=== PATIENT | female | born 1955 | race Caucasian/White ===

== ENCOUNTER 2022-07-13 15:39 | Inpatient (IN) | payer BC, OTHER ==
[~2022-07-13] VITALS: Ht 165.1 cm; Wt 84.1 kg
[2022-07-13 16:06] LABS: BASOPHILS # (AUTO) 0.1 X10'3 (0-0.2); BASOPHILS % (AUTO) 1.3 % (0-1); EOSINOPHILS # (AUTO) 0.2 X10'3 (0-0.9); EOSINOPHILS % (AUTO) 3.5 % (0-6); HEMATOCRIT 43.7 % (35.0-45.0); HEMOGLOBIN 14.6 g/dl (12.0-16.0); LYMPHOCYTES # (AUTO) 1.7 X10'3 (1.1-4.8); LYMPHOCYTES % (AUTO) 30.5 % (21-51); MEAN CORPUSCULAR HEMOGLOBIN 32.8 PG (27.0-31.0); MEAN CORPUSCULAR HGB CONC 33.5 g/dL (33.0-36.5); MEAN CORPUSCULAR VOLUME 97.7 FL (78-98); MEAN PLATELET VOLUME 9.4 FL (7.4-10.4); MONOCYTES # (AUTO) 0.7 X10'3 (0-0.9); MONOCYTES % (AUTO) 12.8 % (2-12); NEUTROPHILS % (AUTO) 51.9 % (42-75); PLATELET COUNT 147 X10'3 (140-440); RED BLOOD COUNT 4.47 X10'6 (4.20-5.60); WHITE BLOOD COUNT 5.7 X10'3 (4.5-11.0)
[2022-07-13 16:13] LABS: ALANINE AMINOTRANSFERASE 25 U/L (12-78); ALBUMIN 4.2 G/DL (3.4-5.0); ALBUMIN/GLOBULIN RATIO 1.4 (1.1-1.5); ALKALINE PHOSPHATASE 74 IU/L (46-116); ANION GAP 3 (8-16); ASPARTATE AMINO TRANSFERASE 19 U/L (10-37); BILIRUBIN,TOTAL 0.4 MG/DL (0.1-1.0); CALCIUM 9.2 MG/DL (8.5-10.1); CHLORIDE 103 MMOL/L (99-107); CREATININE 0.74 MG/DL (0.40-0.90); GLUCOSE 103 MG/DL (70-104); POTASSIUM 3.8 MMOL/L (3.5-5.1); SODIUM 136 MMOL/L (135-145); TOTAL CARBON DIOXIDE 29.9 MMOL/L (24-32); TOTAL PROTEIN 7.3 G/DL (6.4-8.2); eGFR 78 ML/MIN
[2022-07-13 16:21] LABS: BLOOD UREA NITROGEN 22 MG/DL (7-18); BUN/CREATININE RATIO 29.7 (10.0-20.0); MAGNESIUM 2.2 MG/DL (1.5-2.4)
[2022-07-13] MEDS ORDERED: nitroGLYCERIN 1gm ointment UD TP ONE (21:05)
[2022-07-13] MEDS ORDERED: aspirin 325mg tablet PO ONE (21:05)
[2022-07-13 22:10] LABS: D-DIMER 0.21 MG/L FEU (0-0.50)
[2022-07-13] MEDS ORDERED: mag hydrox/Alum hydrox/simeth 30ml oral suspension PO PRN (22:35)
[2022-07-13] MEDS ORDERED: nitroGLYCERIN 0.4mg SUBLingual tab SL PRN (22:35)
[2022-07-13] MEDS ORDERED: magnesium 2GM in 50ml NS 50 ML IV PRN (22:35)
[2022-07-13] MEDS ORDERED: potassium Cl 40MEQ/1/2NS 520ml 520 ML IV PRN (22:35)
[2022-07-13] MEDS ORDERED: regadenoson 0.4mg/5ml syringe IV PRN (22:35)
[2022-07-13] MEDS ORDERED: acetaminophen 325mg tablet PO PRN (22:35)
[2022-07-13] MEDS ORDERED: metoprolol tartrate 1mg/ml inj IV PRN (22:35)
[2022-07-13] MEDS ORDERED: magnesium 4gm in 100ml NS 100 ML IV PRN (22:35)
[2022-07-13] MEDS ORDERED: magnesium hydroxide 30ml (MOM) UD suspension PO PRN (22:35)
[2022-07-13] MEDS ORDERED: aminophylline 250mg/10ml inj. IV PRN (22:35)
[2022-07-13] MEDS ORDERED: ondansetron/PF 4mg/2ml inj IV PRN (22:35)
[2022-07-13] MEDS ORDERED: PERFLUTREN PROTEIN-A MICROSPHR (Optison) 0.22 MG/ML 3ML VIAL IV ONE (22:35)
[2022-07-13] MEDS ORDERED: potassium Cl 20 mEq SR tablet PO PRN ×2 (22:35)
[2022-07-13] MEDS ORDERED: magnesium Cl slow-release 64mg tablet PO PRN (22:35)
[2022-07-14] MEDS ORDERED: LEVO88TA2 PO (04:09)
[2022-07-14] MEDS ORDERED: acetaminophen 325mg tablet PO ONE (04:45)
--- NOTE | 2022-07-14 04:47 | NUR ---
NITRO PASTE REMOVED PER MD GLASER.
[2022-07-14] MEDS ORDERED: docusate sod 100mg capsule PO SCH (08:00)
[2022-07-14] MEDS ORDERED: heparin, porcine 5000 units/ml vial SQ SCH (08:00)
[2022-07-14] MEDS ORDERED: K and/or MAG REPLACEMENT MC SCH (08:00)
[2022-07-14] MEDS ORDERED: regadenoson 0.4mg/5ml syringe IV PRN (08:00)
[2022-07-14 08:14] LABS: BASOPHILS % (AUTO) 0.9 % (0-1); EOSINOPHILS # (AUTO) 0.1 X10'3 (0-0.9); EOSINOPHILS % (AUTO) 1.7 % (0-6); HEMATOCRIT 41.7 % (35.0-45.0); HEMOGLOBIN 13.9 g/dl (12.0-16.0); LYMPHOCYTES # (AUTO) 1.1 X10'3 (1.1-4.8); LYMPHOCYTES % (AUTO) 20.7 % (21-51); MEAN CORPUSCULAR HEMOGLOBIN 32.6 PG (27.0-31.0); MEAN CORPUSCULAR HGB CONC 33.3 g/dL (33.0-36.5); MEAN PLATELET VOLUME 9.5 FL (7.4-10.4); MONOCYTES # (AUTO) 0.6 X10'3 (0-0.9); MONOCYTES % (AUTO) 10.6 % (2-12); NEUTROPHILS # (AUTO) 3.5 X10'3 (1.8-7.7); NEUTROPHILS % (AUTO) 66.1 % (42-75); PLATELET COUNT 138 X10'3 (140-440); RED BLOOD COUNT 4.25 X10'6 (4.20-5.60); WHITE BLOOD COUNT 5.3 X10'3 (4.5-11.0)
[2022-07-14 08:36] LABS: ALANINE AMINOTRANSFERASE 21 U/L (12-78); ALBUMIN 3.6 G/DL (3.4-5.0); ALBUMIN/GLOBULIN RATIO 1.2 (1.1-1.5); ALKALINE PHOSPHATASE 69 IU/L (46-116); ANION GAP 7 (8-16); ASPARTATE AMINO TRANSFERASE 18 U/L (10-37); BILIRUBIN,TOTAL 0.8 MG/DL (0.1-1.0); BLOOD UREA NITROGEN 18 MG/DL (7-18); CHLORIDE 105 MMOL/L (99-107); CREATININE 0.72 MG/DL (0.40-0.90); GLUCOSE 106 MG/DL (70-104); MAGNESIUM 2.2 MG/DL (1.5-2.4); POTASSIUM 4.3 MMOL/L (3.5-5.1); SODIUM 140 MMOL/L (135-145); TOTAL CARBON DIOXIDE 27.6 MMOL/L (24-32); TOTAL PROTEIN 6.6 G/DL (6.4-8.2); eGFR 81 ML/MIN
--- NOTE | 2022-07-14 08:37 | NUR ---
NM paged. [phone] Little. Pt has a stress test order this AM. PT NPO. Can you call [phone]. Thanks. George Portillo LVN
--- NOTE | 2022-07-14 08:48 | NUR ---
Paged Page Sent PAGER ID: [phone] MESSAGE: [id number]- Little. There is no Colette scan until Monday. Pt had a colette ordered this am. George Portillo LVN
[2022-07-14 11:00] VITALS: BP 145/68; PULSE 90; RESP 12; TEMP 98; O2SAT 100
--- NOTE | 2022-07-14 11:01 | NUR ---
Collaborated with Dr. Fuller on current [facility]. She orders to discontinue. Addendum: 07/14/22 at 1112 by George Lucas LVN, LVN Wrong Pt.
--- NOTE | 2022-07-14 11:12 | NUR ---
TRANSPORTATION SUPERINTENDENT paged. [phone]- Olive. Jameel Hinton. Pt is NPO. She was awaiting Stress test. Will her stress test be outpatient? Can she have lunch? Thanks. George Portillo LVN
[2022-07-14] MEDS ORDERED: acetaminophen 325mg tablet PO PRN (11:30)
[2022-07-14] MEDS ORDERED: aspirin 81mg, enteric-coated 1 TAB TABLET.DR PO ONE (12:55)
[2022-07-14 15:00] VITALS: BP 122/57; PULSE 64; RESP 12; TEMP 98.2; O2SAT 100
--- NOTE | 2022-07-14 16:12 | NUR ---
[id number] Little Patient is asking if she will be discharged today. Thank you Marbella COLVIN
[2022-07-14] MEDS ORDERED: ATOR20TA66 PO (16:45)
[2022-07-14] MEDS ORDERED: ASPI-1071 PO (16:45)
[2022-07-14] MEDS ORDERED: LOP12.5T PO (16:45)
--- NOTE | 2022-07-14 16:48 | NUR ---
Paged Page Sent PAGER ID: [phone] MESSAGE: [id number] Olive. Pt inquiring if she will be able to be discharged today. Mary Jane ORELLANA has met with patient. George Portillo LVN
--- NOTE | 2022-07-14 17:20 | NUR ---
All verbal and written instuctions provided. All questions answered. PIV DC'ed Telebox DC'ed. Patient collected all belongings including cell phone and purse. Patient chose to ambulate to lobby and left in private vehicle with spouse.
[2022-07-14] MEDS ORDERED: metoprolol tartrate 12.5mg (1/2 tablet) PO SCH (20:00)
[2022-07-15] MEDS ORDERED: atorvastatin 20mg tablet PO SCH (08:00)
[2022-07-15] MEDS ORDERED: aspirin 81mg, enteric-coated 1 TAB TABLET.DR PO SCH (08:00)
== END 2022-07-14 17:39 | disposition home or self-care (01) | DRG 282 ==
LOC: ER 15:40 → ED HOLD 22:35 → OBSVTOIN 22:35 → PCU 3S 07-14 07:59
PROVIDERS: ADMIT Internal Medicine; ATTEND Family Medicine
DX: I21.4 Non-ST elevation (NSTEMI) myocardial infarction (principal); I25.119 Atherosclerotic heart disease of native coronary artery with unspecified angina pectoris; E06.3 Autoimmune thyroiditis; Z82.49 Family history of ischemic heart disease and other diseases of the circulatory system; Z86.16 Personal history of COVID-19; Z88.5 Allergy status to narcotic agent; Z88.1 Allergy status to other antibiotic agents; Z79.890 Hormone replacement therapy
CPT/HCPCS: 36415; 71045; 80053; 83735; 83880; 84443; 84484; 85025; 85379; 93005; 93306; 99285; G0378